=== PATIENT | female | born 1960 | race Two or more races ===

== ENCOUNTER 2024-07-15 07:18 | Outpatient (CLI) | payer OTHER | END 2024-07-15 07:20 | disposition home or self-care (01) | LOC: MAMO-SONO 07:18 | PROVIDERS: ATTEND Obstetrics & Gynecology Obstetrics | DX: N64.0 Fissure and fistula of nipple (principal); N63.0 Unspecified lump in unspecified breast; Z12.31 Encounter for screening mammogram for malignant neoplasm of breast; R10.2 Pelvic and perineal pain ==

== ENCOUNTER 2024-09-09 05:16 | Emergency (ER) | payer OTHER ==
[~2024-09-09] VITALS: Ht 167.6 cm; Wt 77.1 kg
[2024-09-09] MEDS ORDERED: DIPHENHYDRAMINE HCL 50 MG/ML VIAL 1ML IV STA (06:10)
[2024-09-09] MEDS ORDERED: METHYLPREDNISOLONE SOD SUCC 125 MG VIAL IV STA (06:11)
[2024-09-09] MEDS ORDERED: FAMOTIDINE/PF 20 MG/2 ML VIAL IV PUSH STA (06:11)
[2024-09-09] MEDS ORDERED: EPINEPHRINE HCL/PF 1 MG/ML AMPUL SUBCUTANEO STA (06:11)
[2024-09-09] MEDS ORDERED: DIPHENHYDRAMINE HCL 50 MG/ML VIAL 1ML ONE (06:20)
[2024-09-09] MEDS ORDERED: WATER FOR INJ.,BACTERIOSTATIC 30 ML VIAL IJ ONE (06:20)
[2024-09-09] MEDS ORDERED: METHYLPREDNISOLONE SOD SUCC 125 MG VIAL ONE (06:20)
[2024-09-09] MEDS ORDERED: EPINEPHRINE HCL/PF 1 MG/ML AMPUL ONE (06:20)
[2024-09-09] MEDS ORDERED: FAMOTIDINE/PF 20 MG/2 ML VIAL ONE (06:21)
[2024-09-09] MEDS ORDERED: BENADRYL25 MG PO (07:44)
[2024-09-09] MEDS ORDERED: MEDROL8 MG PO (07:44)
[2024-09-09] MEDS ORDERED: PEPCID40 MG PO (07:44)
== END 2024-09-09 08:22 ==
LOC: ER 05:21
DX: L50.9 Urticaria, unspecified (principal); Z88.0 Allergy status to penicillin
CPT/HCPCS: 96365; 99282; J0171; J1200; J3490